=== PATIENT | male | born 1965 | race Caucasian/White ===

== ENCOUNTER → 2020-02-20 | Outpatient (CLI) | payer OTHER ==
[~2020-02-20] MED LIST: LOPE2CAP PO; PREG50CA PO
[2020-02-20 10:12] LABS: MICROSCOPIC NOT IND
[2020-02-20 10:16] LABS: BASOPHILS # (AUTO) 0.02 x10^3/uL (0-0.1); BASOPHILS % (AUTO) 0 % (0-1); EOSINOPHILS # (AUTO) 0.13 x10^3/uL (0-0.4); EOSINOPHILS % (AUTO) 3 % (1-7); LYMPHOCYTES # (AUTO) 1.45 x10^3/uL (1-3.4); LYMPHOCYTES % (AUTO) 28 % (22-44); MD NO; MEAN CORPUSCULAR HGB CONC 33.9 g/dL (33.2-36.2); MEAN CORPUSCULAR VOLUME 88.5 fL (81-97); MEAN PLATELET VOLUME 9.4 fL (7.4-10.4); MONOCYTES # (AUTO) 0.37 x10^3/uL (0.2-0.8); MONOCYTES % (AUTO) 7 % (2-9); NEUTROPHILS # (AUTO) 3.23 x10^3/uL (1.8-6.8); NEUTROPHILS % (AUTO) 62 % (42-75); PLATELET COUNT 175 x10^3/uL (130-400); RED BLOOD COUNT 5.37 x10^6/uL (4.38-5.82); RED CELL DISTRIBUTION WIDTH 13.3 % (9.4-14.8)
[2020-02-20 10:21] LABS: INTERNATIONAL NORMALIZED RATIO 0.98 (0.93-1.1); PROTHROMBIN TIME 10.1 Seconds (9.6-11.5)
[2020-02-20 10:22] LABS: ANION GAP 6 mmol/L (5-15); CHLORIDE 108 mmol/L (98-107); CREATININE 1.24 mg/dL (0.7-1.3)
== END | disposition home or self-care (01) ==
LOC: STAR 07:42
PROVIDERS: ATTEND Neurological Surgery
DX: Z01.812 Encounter for preprocedural laboratory examination (principal); Z20.828 Contact with and (suspected) exposure to other viral communicable diseases
CPT/HCPCS: 36415; 71046; 80048; 81003; 85025; 85610; 85730; 87635; 93005

== ENCOUNTER 2020-02-24 06:54 | Observation (INO) | payer OTHER ==
[~2020-02-24] VITALS: Ht 177.8 cm; Wt 86.9 kg
[~2020-02-24 06:54] MED LIST changes: +BACITRACIN 50,000 UNIT ONE; +BUPIVACAINE 0.25% ONE; +BUPIVACAINE/PF 0.5% ONE; +EPINEPHRINE 1 MG/ML, 1ML ONE; +VANCOMYCIN 1,000 MG ONE
[2020-02-24] MEDS ORDERED: CHLORHEXIDINE 15 ML UDC ONE (07:38)
[2020-02-24] MEDS ORDERED: LACTATED RINGERS 1,000 ML IV SCH (07:51)
[2020-02-24] MEDS ORDERED: CHLORHEXIDINE 15 ML UDC MM ONE (08:00)
[2020-02-24] MEDS ORDERED: FENTANYL PF 250 MCG/5ML ONE ×2 (08:44→10:15)
[2020-02-24] MEDS ORDERED: PROPOFOL 50 ML ONE (08:45)
[2020-02-24] MEDS ORDERED: PROMETHAZINE 12.5 MG SUPP PR PRN (09:30)
[2020-02-24] MEDS ORDERED: HYDROmorphone 1 MG/ML, 1ML INJ IVPush PRN (09:30)
[2020-02-24] MEDS ORDERED: EPHEDRINE 50 MG/ML, 1ML IVPush PRN (09:30)
[2020-02-24] MEDS ORDERED: FENTANYL PF 100 MCG/2ML IV PRN (09:30)
[2020-02-24] MEDS ORDERED: ACETAMINOPHEN 325 MG TABLET PO PRN (09:30)
[2020-02-24] MEDS ORDERED: hydrALAzine 20 MG/ML, 1ML IV PRN (09:30)
[2020-02-24] MEDS ORDERED: LABETALOL 5MG/ML, 20ML IV PRN (09:30)
[2020-02-24] MEDS ORDERED: OXYcodone 5 MG/5 ML ORAL.SOL UDC PO PRN (09:30)
[2020-02-24] MEDS ORDERED: FENTANYL PF 100 MCG/2ML ONE (10:23)
[2020-02-24] MEDS ORDERED: BUPIVACAINE LIPOSOME/PF 10ML INFIL ONE (10:29)
[2020-02-24] MEDS ORDERED: BUPIVACAINE/PF 0.25% EPIDPUSH ONE (10:30)
[2020-02-24] MEDS ORDERED: FENTANYL PF 100 MCG/2ML EPIDPUSH ONE (10:31)
[2020-02-24] MEDS ORDERED: DIPHENHYDRAMINE 50 MG CAPSULE PO PRN (11:30)
[2020-02-24] MEDS ORDERED: HYDROcodone/APAP 10/325 MG TABLET PO PRN (11:30)
[2020-02-24] MEDS ORDERED: PHARMACY MAY ADJ FOR RENAL FX MC PRN (11:30)
[2020-02-24] MEDS ORDERED: METHOCARBAMOL 1,000 MG in DEXTROSE 5% 100 ML IV ONE (11:30)
[2020-02-24] MEDS ORDERED: DIPHENHYDRAMINE 50 MG/ML, 1ML IVPush PRN (11:30)
[2020-02-24] MEDS ORDERED: ONDANSETRON 2MG/ML, 2ML IVPush PRN (11:30)
[2020-02-24] MEDS ORDERED: D5%-0.9% NACL+KCL 20MEQ 1,000 ML IV SCH (11:30)
[2020-02-24] MEDS ORDERED: morphine SULFATE 10 MG/ML, 1ML IVPush PRN (11:30)
[2020-02-24] MEDS ORDERED: BISACODYL 10 MG SUPP PR PRN (11:30)
[2020-02-24] MEDS ORDERED: CEFAZOLIN PMX 1GM/50ML 50 ML IVPB SCH (11:30)
[2020-02-24] MEDS ORDERED: DIPHENHYDRAMINE 50 MG/ML, 1ML IM PRN (11:30)
[2020-02-24] MEDS ORDERED: DEXAMETHASONE 4 MG/ML, 1ML ONE (11:55)
[2020-02-24] MEDS ORDERED: GLYCOPYRROLATE 0.2MG/1ML, 5ML ONE (11:55)
[2020-02-24] MEDS ORDERED: SUCCINYLCHOLINE 20 MG/ML, 10ML ONE (11:55)
[2020-02-24] MEDS ORDERED: ONDANSETRON 2MG/ML, 2ML ONE (11:55)
[2020-02-24] MEDS ORDERED: CEFAZOLIN 1,000 MG ONE (11:55)
[2020-02-24] MEDS ORDERED: ROCURONIUM 10MG/ML,5ML ONE (11:55)
[2020-02-24] MEDS ORDERED: PROPOFOL 10 MG/ML, 20ML ONE (11:55)
[2020-02-24] MEDS ORDERED: NEOSTIGMINE 1 MG/ML, 10ML ONE (11:55)
[2020-02-24] MEDS ORDERED: LOPERAMIDE 2 MG CAPSULE PO SCH (16:00)
[2020-02-24] MEDS ORDERED: SODIUM CHLORIDE FLUSH 10ML SYR IVF SCH (21:00)
[2020-02-24] MEDS ORDERED: PREGABALIN 50 MG PO SCH (21:00)
[2020-02-26] MEDS ORDERED: METHOCARBAMOL 750 MG TABLET PO SCH (19:30)
== END 2020-02-24 14:03 | disposition home or self-care (01) ==
LOC: ORIP 06:54 → INTOOBSV 06:54 → EDSTATUS 10:00
PROVIDERS: ADMIT Neurological Surgery; ATTEND Neurological Surgery
DX: M48.061 Spinal stenosis, lumbar region without neurogenic claudication (principal); K58.9 Irritable bowel syndrome, unspecified; G43.909 Migraine, unspecified, not intractable, without status migrainosus; M19.90 Unspecified osteoarthritis, unspecified site; Z79.899 Other long term (current) drug therapy
CPT/HCPCS: 63047; 63048; 63056; 63057; 72100; 95938; 95941; G0378; J0171; J0330; J0690; J1100; J2405; J2704; J2710; J3010; J3370; J3490; J7120; S0020